=== PATIENT | male | born 1960 | race Caucasian/White ===

== ENCOUNTER → 2017-05-05 | Outpatient (CLI) | payer MEDICARE, OTHER ==
[~2017-05-05] MED LIST: COZAAR100 MG PO; DULOXETINE HCL60 MG PO; HYDRALAZINE HCL25 MG PO; LASIX20 MG PO; METOPROLOL TAR100 MG PO; NORVASC10 MG PO; PANTOPRAZOLE SO40 MG PO; PRAVACHOL80 MG PO; VITAMIN D31000 UNIT PO; XARELTO15 MG PO
--- NOTE | ~2017-05-05 | MR103 ---
[facility] A Service [facility] RADIOLOGY TEXT RESULTS PATIENT: LE CUEVAS LOCATION: [facility] : [birth year] UNIT #: [id number] AGE: [address]: Sugey Moon SEX: M ORDER DR: [id number] [address] [address] [id number] O MR#: [id number] Acc #: [id number] NAME: LE CUEVAS : 1960 SEX: M STUDY DATE/TIME: 05/05/2017 11:30 UNIT: [facility] ROOM: STUDY DESCRIPTION: MR Knee Wo Contrast Lt Attending Physician: Sugey Moon P.A.-C. Referring Physician: Sugey Moon P.A.-C. Ordering Physician: Sugey Moon P.A.-C. MRI CENTER REPORT This report is preliminary unless electronic signature is present. EXAM Left knee MRI without contrast 05/05/2017. HISTORY 56-year-old male with left knee pain for 6 years. Osteoarthritis. No prior left knee surgery COMPARISON Knee x-rays 04/02/2017. TECHNIQUE Routine unenhanced multiplanar, multisequence high field MR imaging of the left knee was performed. FINDINGS Examination is limited by motion artifact on multiple sequences. Allowing for this, there is a diminutive appearance of the posterior horn and body segment of the medial meniscus suggesting degenerative tearing. The body segment is partially extruded from the medial joint line. Lateral meniscus appears grossly intact. Cruciate and collateral ligaments are intact. Extensor mechanism is intact. Small joint effusion with synovial proliferation. No significant popliteal cyst. There is moderate to high-grade chondromalacia of the medial patellar facet/median ridge. High-grade chondromalacia throughout the central and medial femoral trochlea. Lateral compartment articular cartilage appears intact. There is extensive full-thickness articular cartilage loss throughout the medial compartment with subchondral marrow edema. Tricompartmental marginal osteophyte formation. [facility] A [facility] RADIOLOGY TEXT RESULTS PATIENT: LE CUEVAS LOCATION: [facility] : [birth year] UNIT #: [id number] AGE: [address]: Sugey Moon SEX: M ORDER DR: There is also high-grade chondromalacia far posterior nonweightbearing medial femoral condyle. Remainder of the bone marrow signal is in expected limits. Visualized musculature is unremarkable. IMPRESSION 1. Motion limited exam. 2. Diminutive appearance of the posterior horn and body segment of the medial meniscus suggesting diffuse degenerative type tear. Body segment is partially extruded from the medial joint line. 3. No acute ligament injury. 4. Advanced medial compartment arthrosis, detailed above. 5. Multifocal moderate to high-grade chondromalacia throughout the patellofemoral joint. 6. Tricompartmental marginal osteophyte formation. 7. Small joint effusion with associated synovial proliferation. Dictated by... Stuart Maddox M.D. THIS IS AN ELECTRONICALLY VERIFIED REPORT Stuart Maddox M.D. at 05/07/2017 10:43 AM ANDREA/diallo TD: 05/06/2017 08:59 JOB #: [id number] MRI CENTER REPORT Page 1 of 1
== END | disposition home or self-care (01) ==
LOC: SMRI 11:06
DX: M17.12 Unilateral primary osteoarthritis, left knee (principal); M22.42 Chondromalacia patellae, left knee; M25.462 Effusion, left knee; M25.762 Osteophyte, left knee
CPT/HCPCS: 73721

== ENCOUNTER → 2017-05-16 | Outpatient (CLI) | payer MEDICARE, OTHER ==
--- NOTE | ~2017-05-16 | MR104 ---
[facility] A Service [facility] RADIOLOGY TEXT RESULTS PATIENT: LE CUEVAS LOCATION: [facility] : [birth year] UNIT #: [id number] AGE: [address]: Sugey Moon SEX: M ORDER DR: [id number] [address] [address] [id number] O MR#: [id number] Acc #: [id number] NAME: LE CUEVAS : 1960 SEX: M STUDY DATE/TIME: 05/16/2017 12:02 UNIT: [facility] ROOM: STUDY DESCRIPTION: MR Knee Wo Contrast Rt Attending Physician: Sugey Moon P.A.-C. Referring Physician: Sugey Moon P.A.-C. Ordering Physician: Sugey Moon P.A.-C. MRI CENTER REPORT This report is preliminary unless electronic signature is present. EXAM Right knee MRI without contrast 05/16/2017 HISTORY 56-year-old male with right knee pain for 6 years. Osteoarthritis. No prior right knee surgery. COMPARISON Knee x-rays 04/02/2017. TECHNIQUE Routine unenhanced multiplanar, multisequence high field MR imaging of the right knee was performed. FINDINGS There is a macerated, degenerative-type tear involving the majority of the posterior horn and body segment of the medial meniscus. There is a large vertical radial component near the junction of the posterior horn/body segment. The body segment is extruded from the medial joint line. Lateral meniscus is intact. Cruciate and collateral ligaments are intact. Extensor mechanism is intact. [id number] joint effusion with associated synovial proliferation. No loose intraarticular bodies. No significant popliteal cyst. The articular cartilage of the patella is intact. There is a small focus of high-grade chondromalacia of the inferior medial femoral trochlea. Lateral compartment articular cartilage is intact. There is extensive full-thickness articular cartilage loss along the weightbearing surfaces in the medial compartment. There are suspected developing small subchondral insufficiency fractures along the anteromedial margin of the [facility] RADIOLOGY TEXT RESULTS PATIENT: LE CUEVAS LOCATION: [facility] : [birth year] UNIT #: [id number] AGE: [address]: Sugey Moon SEX: M ORDER DR: medial femoral condyle and medial margin of the medial tibial plateau. Reactive subchondral marrow edema noted in both the medial femoral condyle and medial tibial plateau. Remainder of the bone marrow signal is within expected limits. Visualized musculature is unremarkable. IMPRESSION 1. Macerated, degenerative type tear involving majority of the posterior horn and body segment medial meniscus, detailed above. 2. No acute ligament injury. 3. Advanced medial compartment arthrosis with questionable small developing subchondral insufficiency fractures along the anteromedial margin of the medial femoral condyle and medial margin of the medial tibial plateau. 4. Small focus of high-grade chondromalacia inferior medial femoral trochlea. 5. [id number] joint effusion with associated synovial proliferation. Dictated by... Stuart Maddox M.D. THIS IS AN ELECTRONICALLY VERIFIED REPORT Stuart Maddox M.D. at 05/19/2017 1:15 PM ANDREA/brianne TD: 05/19/2017 12:48 JOB #: [id number] MRI CENTER REPORT Page 1 of 1
== END | disposition home or self-care (01) ==
LOC: SMRI 11:24
DX: R60.0 Localized edema (principal); S83.241A Other tear of medial meniscus, current injury, right knee, initial encounter; M17.11 Unilateral primary osteoarthritis, right knee; M94.261 Chondromalacia, right knee; M25.461 Effusion, right knee
CPT/HCPCS: 73721